=== PATIENT | male | born 1945 | race Caucasian/White ===

== ENCOUNTER 2016-08-06 13:35 | Inpatient (IN) ==
[2016-08-06] MEDS ORDERED: *HR* HYDROmorphone (PF) 1 MG/ML SYRINGE IVP ONE (14:04)
[2016-08-06] MEDS ORDERED: Ondansetron 4 MG/2 ML VIAL IVP ONE (14:04)
--- NOTE | 2016-08-06 14:07 | Emergency Department Note ---
Disposition Clinical Impression: Splenomegaly Disposition: Admitted As Inpatient Condition: Fair Referrals: Julio César Lemus DO [Primary Care Provider] - Forms: Work/School Release, ED Satisfaction Letter Time of Disposition: 16:51 Abdominal Pain HPI - General Chief Complaint: ED Abdominal Pain Stated Complaint: Sharp Abdominal Pain Time Seen by Provider: 08/06/16 13:46 Source: patient, family Mode of arrival: ambulatory Limitations: no limitations Nursing Notes Reviewed: Yes Vital Signs Reviewed: Yes - History of Present Illness HPI Narrative: 71-year-old male comes in with a 6 month history of intermittent left-sided abdominal pain. Patient has a history of AML. He states he's had this pain intermittently for 6 months. Patient has had 2 previous colonoscopies that showed polyps. His next colonoscopy is due to 2019. Denies any blood in the stool or dark tarry stools. He is not receiving treatment for his AML at this time. Patient has been seen by oncology here and at the [facility]. Pt Subjective Complaint: abdominal pain Onset (ago): day(s) Consistency: intermittent Pain Scale: 10 Quality: stabbing Radiation: LLQ Migration to: no migration Improves with: nothing Worsens with: nothing - Related Data Home Medications Medication Instructions Recorded Confirmed Albuterol Sulfate [Ventolin Hfa] 1 puff IH Q4-6H PRN 01/20/16 07/26/16 Ascorbate Calcium [Vitamin C] 500 mg PO DAILY 01/20/16 07/26/16 Cholecalciferol (D-3) [Vitamin D] 1,000 unit PO DAILY 01/20/16 07/26/16 Fluticasone Propionate Nasal 2 spray NS DAILY PRN 01/20/16 07/26/16 [Flonase] Montelukast [Singulair] 10 mg PO DAILY 01/20/16 07/26/16 Nadolol 20 mg PO DAILY 01/20/16 07/26/16 Pantoprazole Sodium [Protonix] 40 mg PO DAILY 01/20/16 07/26/16 Simvastatin [Zocor] 40 mg PO HS 01/20/16 07/26/16 Temazepam [Restoril] 15 mg PO HS 01/20/16 07/26/16 Ondansetron HCl [Zofran] 4 mg PO Q6H PRN 02/19/16 07/26/16 Previous Rx's Medication Instructions Recorded Magic Mouthwash 5 - 10 ml PO TID PRN #480 ml 02/25/16 Valacyclovir [Valtrex] 500 mg PO DAILY #30 tablet 02/25/16 Oxycodone HCl 5 mg PO Q2H PRN #90 capsule 07/19/16 Oxycodone HCl [Oxycodone HCl ER] 15 mg PO Q12H #60 tab.er.12h 07/19/16 Allergies Allergy/AdvReac Type Severity Reaction Status Date / Time aspirin [ASA] Allergy Heartburn Verified 08/06/16 13:37 Zolpidem [From Ambien] AdvReac See Verified 08/06/16 13:37 Comments Constitutional: Denies: fever, chills, weakness, weight change Eyes: Denies: eye pain, eye discharge, vision change ENT ED: Denies: ear pain, throat pain, dental pain, hearing loss, epistaxis, congestion, dysphagia Cardiovascular: Denies: chest pain, palpitations, dyspnea on exertion, edema, syncope Respiratory: Denies: cough, dyspnea, wheezes, hemoptysis, stridor Gastrointestinal: Reports: abdominal pain. Denies: nausea, vomiting, diarrhea, constipation, hematemesis, melena, hematochezia Genitourinary: Denies: urgency, dysuria, frequency, hematuria Musculoskeletal: Denies: back pain, neck pain, arthralgia, myalgia Integumentary: Denies: rash, abrasion, lesions Neurological: Denies: headache, weakness, numbness, paresthesias, confusion, abnormal gait, vertigo Psychiatric: Denies: anxiety, depression, suicidal thoughts, homicidal thoughts , auditory hallucinations, visual hallucinations Endocrine: Denies: fatigue Hematological/Lymphatic: Denies: easy bleeding, easy bruising Allergic/Immunologic: Denies: facial swelling, urticaria Abdominal Pain PMH - Past Medical History Medical history: Reports: cancer, cirrhosis, COPD, GERD, hypertension, other Male Surgical History: Reports: cholecystectomy Psychiatric history: Reports: no psych history - Social History Smoking status: Never smoker Alcohol use: Reports: none Drug use: Reports: none Physical Exam - General Limitations: no limitations General appearance: alert, in no apparent distress - Head Head exam: atraumatic, normocephalic, normal inspection - Eye Eye exam: Present: normal appearance, PERRL, EOMI - ENT ENT exam: normal exam, normal oropharynx, mucous membranes moist - Neck Neck exam: Present: normal inspection, full ROM, trachea midline - Chest Chest inspection: Present: normal inspection, symmetric chest wall rise - Respiratory Respiratory exam: Present: normal lung sounds bilaterally - Cardiovascular Cardiovascular exam: Present: regular rate, normal rhythm, normal heart sounds - Abdominal Exam Abdominal exam: Present: soft, tenderness. Absent: distention, guarding, rebound, rigidity Abdominal tenderness: Present: LUQ, LLQ - Extremities Exam Extremities exam: Present: normal inspection, full ROM. Absent: tenderness, pedal edema - Expanded Lower Extremity Exam Neurovascular/Tendon exam: Absent: motor deficit, sensory deficit, tendon deficit - Back Exam Back exam: Present: normal inspection, full ROM. Absent: tenderness - Neurological Exam Neurological exam: Present: alert, oriented X3 - Psychiatric Psychiatric exam: Present: normal affect, normal mood - Skin Skin exam: Present: warm, dry, intact, normal color Course - Reevaluation(s) Reevaluation #1: 71-year-old with a history of AML who comes in with left upper quadrant pain. CT scan shows a 20 cm spleen, the CT from 2013 showed 11 cm spleen. Discussed case with the oncologist and he wants the patient admitted so they can work this up further. Time: 16:50 - Consultations Consultation #1: Discussed with , admitted to the hospitalist. Time: 16:50 Consultation #2: Discussed with Bindu Cesar nurse practitioner, admit Time: 16:51 Vital Signs Temperature 98.2 F 08/06/16 13:37 Pulse Rate 93 08/06/16 13:37 Respiratory Rate 18 08/06/16 13:37 Blood Pressure 134/75 08/06/16 13:37 O2 Sat by Pulse Oximetry 95 08/06/16 13:37 Temperature 98.2 F 08/06/16 13:37 Pulse Rate 82 08/06/16 16:30 Respiratory Rate 16 08/06/16 16:30 Blood Pressure 103/61 08/06/16 16:30 O2 Sat by Pulse Oximetry 97 08/06/16 16:30 Oxygen Delivery Oxygen Delivery Nasal Cannula Abdominal Pain - Lab Data Lab results reviewed: Yes I reviewed the patient's lab results. Result diagrams: 08/06/16 15:30 08/06/16 15:30 Lab Results 0208/06/16 08/06/16 Range/Units 15:20 15:30 15:30 WBC 10.5 (4.3-11.1) K/mcL RBC 2.59 L (4.19-5.50) M/mcL Hgb 7.5 L (12.9-16.9) g/dL Hct 21.8 L (37.5-50.1) % MCV 84.2 (83.0-100.0) fL MCH 29.0 (28.0-33.3) pg MCHC 34.4 (31.6-35.5) g/dL RDW 14.3 (11.5-14.5) % Plt Count 34 L (140-400) K/mcL MPV 10.3 (9.4-12.4) fL Immature Gran % 2.1 (0-4) % Seg Neutrophils % 60.7 % Lymphocytes % 18.9 % Monocytes % 18.2 % Eosinophils % 0.0 % Basophils % 0.1 % Neutrophils # 6.4 (1.6-8.9) K/mcL Lymphocytes # 2.0 (0.6-4.6) K/mcL Monocytes # 1.9 H (0.0-1.3) K/mcL Eosinophils # 0.0 (0.0-0.6) K/mcL Basophils # 0.0 (0.0-0.2) K/mcL Nucleated RBCs/100 WBC 0.2 H (0) /100 WBC Immature Plt Fraction 7.0 H (1.1-6.1) % PT 17.0 H (9.4-12.1) Seconds INR 1.6 APTT 28.7 (26.0-36.0) Seconds Sodium (136-145) mEq/L Potassium (3.5-4.5) mEq/L Chloride (98-109) mEq/L Carbon Dioxide (19-29) mEq/L BUN (8-26) mg/dL Creatinine (0.72-1.25) mg/dL Est GFR ( Amer) (> 60) Est GFR (Non-Af Amer) (> 60) BUN/Creatinine Ratio (6-26) Glucose (70-99) mg/dL Calculated Osmolality (280-300) Lactic Acid (0.5-2.2) mmol/L Calcium (8.6-10.8) mg/dL Total Bilirubin (0.2-1.2) mg/dL Direct Bilirubin (0.0-0.5) mg/dL Indirect Bilirubin (0.0-1.2) mg/dL AST (5-34) Units/L ALT (0-55) Units/L Alkaline Phosphatase (38-126) Units/L Troponin I (0-0.03) ng/mL Serum Total Protein (6.0-8.3) g/dL Albumin (3.5-5.0) g/dL Globulin (2.4-3.5) g/dL Albumin/Globulin Ratio (1.1-2.2) Amylase (25-125) Units/L Lipase (8-78) Units/L Urine Color Yellow (Yellow) Urine Clarity Slightly Hazy (Clear) Urine pH 6.0 (5.0-8.0) pH Units Ur Specific [place] 1.021 (1.010-1.025) Urine Protein Trace (Neg-Trace) mg/dL Urine Glucose (UA) Normal (Normal) mg/dL Urine Ketones Trace H (Negative) mg/dL Urine Blood Negative (Negative) Urine Nitrite Negative (Negative) Urine Bilirubin Negative (Negative) Urine Urobilinogen Normal (Normal) mg/dL Ur Leukocyte Esterase Small H (Negative) Urine Microscopic RBC 0-3 (0-3) per hpf Urine Microscopic WBC 5-15 H (0-3) per hpf Ur Squamous Epith Cells Many H (None-Few) per lpf Urine Bacteria None Seen (None-Few) per hpf Hyaline Casts Moderate H (None-Few) per lpf Ur Culture Indicated? YES A (NO) 08/06/16 08/06/16 08/06/16 Range/Units 15:30 15:30 15:30 WBC (4.3-11.1) K/mcL RBC (4.19-5.50) M/mcL Hgb (12.9-16.9) g/dL Hct (37.5-50.1) % MCV (83.0-100.0) fL MCH (28.0-33.3) pg MCHC (31.6-35.5) g/dL RDW (11.5-14.5) % Plt Count (140-400) K/mcL MPV (9.4-12.4) fL Immature Gran % (0-4) % Seg Neutrophils % % Lymphocytes % % Monocytes % % Eosinophils % % Basophils % % Neutrophils # (1.6-8.9) K/mcL Lymphocytes # (0.6-4.6) K/mcL Monocytes # (0.0-1.3) K/mcL Eosinophils # (0.0-0.6) K/mcL Basophils # (0.0-0.2) K/mcL Nucleated RBCs/100 WBC (0) /100 WBC Immature Plt Fraction (1.1-6.1) % PT (9.4-12.1) Seconds INR APTT (26.0-36.0) Seconds Sodium 136 (136-145) mEq/L Potassium 4.4 (3.5-4.5) mEq/L Chloride 101 (98-109) mEq/L Carbon Dioxide 25 (19-29) mEq/L BUN 23 (8-26) mg/dL Creatinine 1.54 H (0.72-1.25) mg/dL Est GFR ( Amer) 54 L (> 60) Est GFR (Non-Af Amer) 45 L (> 60) BUN/Creatinine Ratio 15 (6-26) Glucose 109 H (70-99) mg/dL Calculated Osmolality 286 (280-300) Lactic Acid 1.0 (0.5-2.2) mmol/L Calcium 9.4 (8.6-10.8) mg/dL Total Bilirubin 0.6 (0.2-1.2) mg/dL Direct Bilirubin 0.3 (0.0-0.5) mg/dL Indirect Bilirubin 0.3 (0.0-1.2) mg/dL AST 12 (5-34) Units/L ALT 10 (0-55) Units/L Alkaline Phosphatase 76 (38-126) Units/L Troponin I 0.00 (0-0.03) ng/mL Serum Total Protein 7.3 (6.0-8.3) g/dL Albumin 3.4 L (3.5-5.0) g/dL Globulin 3.9 H (2.4-3.5) g/dL Albumin/Globulin Ratio 0.9 L (1.1-2.2) Amylase 48 (25-125) Units/L Lipase 11 (8-78) Units/L Urine Color (Yellow) Urine Clarity (Clear) Urine pH (5.0-8.0) pH Units Ur Specific [place] (1.010-1.025) Urine Protein (Neg-Trace) mg/dL Urine Glucose (UA) (Normal) mg/dL Urine Ketones (Negative) mg/dL Urine Blood (Negative) Urine Nitrite (Negative) Urine Bilirubin (Negative) Urine Urobilinogen (Normal) mg/dL Ur Leukocyte Esterase (Negative) Urine Microscopic RBC (0-3) per hpf Urine Microscopic WBC (0-3) per hpf Ur Squamous Epith Cells (None-Few) per lpf Urine Bacteria (None-Few) per hpf Hyaline Casts (None-Few) per lpf Ur Culture Indicated? (NO) - Radiology Data Radiology results reviewed: Yes I reviewed the patient's radiology results. Abdomen/Pelvis CT 08/06/16 14:02 IMPRESSION: 1. No acute process demonstrated 2. Splenomegaly, with chronic occlusion of the splenic vein 3. No abdominopelvic adenopathy D/ / Bright Salas MD / Bright Salas MD Interpreting Provider: Bright Salas MD - EKG Data EKG attestation: Yes I reviewed and interpreted this EKG. EKG shows normal: sinus rhythm Rate: normal Rhythm: NSR Interpretation: no acute changes
[2016-08-06] MEDS: 0.9 % Sodium Chloride 1,000 ML IVC SCH ×2 (15:29→22:09)
[2016-08-06 15:30] LABS: Bilirubin,Urine Negative (Negative); Blood,Urine Negative (Negative); Color,Urine Yellow (Yellow); Glucose,Urine (UA) Normal (Normal); Ketones,Urine Trace mg/dL (Negative); Leukocyte Esterase,Urine Small (Negative); Nitrite,Urine Negative (Negative); Protein,Urine Trace mg/dL (Neg-Trace); Specific Gravity,Urine 1.021 (1.010-1.025); Urobilinogen,Urine Normal (Normal)
[2016-08-06 15:32] LABS: Bacteria,Urine None Seen per hpf (None-Few); Hyaline Casts,Urine Moderate per lpf (None-Few); RBC,Urine 0-3 per hpf (0-3); Squamous Epithelial Cell,Urine Many per lpf (None-Few)
[2016-08-06 15:35] LABS: Clarity,Urine Slightly Hazy (Clear)
[2016-08-06 15:37] LABS: Basophils % 0.1 %; Hematocrit 21.8 % (37.5-50.1); Hemoglobin 7.5 g/dL (12.9-16.9); Immature Granulocytes % 2.1 % (0-4); Lymphocytes % 18.9 %; Mean Corpuscular HGB Conc 34.4 g/dL (31.6-35.5); Mean Corpuscular Volume 84.2 fL (83.0-100.0); Mean Platelet Volume 10.3 fL (9.4-12.4); Monocytes # 1.9 K/mcL (0.0-1.3); Monocytes % 18.2 %; Neutrophils # 6.4 K/mcL (1.6-8.9); Nucleated Red Blood Cells 0.2 /100 WBC (0); Red Blood Count 2.59 M/mcL (4.19-5.50); Red Cell Distribution Width 14.3 % (11.5-14.5); Segmented Neutrophils % 60.7 %
[2016-08-06 15:38] LABS: Platelet Count 34 K/mcL (140-400)
[2016-08-06 15:42] LABS: INR 1.6
[2016-08-06 15:44] LABS: Activated Partial Thrombo Time 28.7 Seconds (26.0-36.0)
[2016-08-06 15:52] LABS: Albumin 3.4 g/dL (3.5-5.0); Albumin/Globulin Ratio 0.9 (1.1-2.2); Bilirubin,Direct 0.3 mg/dL (0.0-0.5); Bilirubin,Indirect 0.3 mg/dL (0.0-1.2); Bilirubin,Total 0.6 mg/dL (0.2-1.2); Calcium 9.4 mg/dL (8.6-10.8); Globulin 3.9 g/dL (2.4-3.5); Potassium 4.4 mEq/L (3.5-4.5); Total Protein 7.3 g/dL (6.0-8.3)
[2016-08-06] MEDS ORDERED: Naloxone 0.4 MG/ML INJ IVP PRN (20:10)
[2016-08-06] MEDS ORDERED: Ondansetron 4 MG/2 ML VIAL IVP PRN (20:10)
--- NOTE | 2016-08-06 20:37 | Internal Med History&Physical ---
<Bindu Cesar M - Last Filed: 08/06/16 21:53> Date of Encounter: 08/06/16 Time of Encounter: 20:33 Assessment and Plan (1) Splenomegaly Current visit: Yes Status: Acute Patient presented with LUQ pain. 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 Spleen measured 20cm compared to 11cm on imaging from 2014. This could be related to his AML, and/or could be cause of recent anemia. There is a small risk of splenic rupture. Consult to oncology, Dr. Munroe was called by ED. consider surgical consult if Splenectomy is deemed necessary. (2) Anemia Current visit: Yes Status: Acute Patient with Anemia requiring multiple transfusions over the last several months. May be related to AML, though he was thought to acheive remission after 5 rounds of chemo. May be due to the Decitabine chemotherapy itself. May also be due to the Splenomegaly with chronic occlusion of the splenic vein. Patient denies any hematemesis, melena or hematochezia. HGB 7.5, down from previous of 8.7 on 08/01. Type and cross. Hold 2 units for possible transfusion Recheck CBC in the morning. Qualifiers: Anemia type: bone marrow failure Bone marrow failure anemia type: unspecified bone marrow failure Qualified Code(s): D61.9 - Aplastic anemia, unspecified (3) Acute kidney injury superimposed on chronic kidney disease Current visit: Yes Status: Acute Cr 1.54 up from previous of 1.22. UA shows moderate casts,trace ketones, small leuks, and some WBCs. Patient reports poor oral intake over the last several days and suspect he is dehydrated. Will hydrate and recheck chemistry in the morning. 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 Jewell Macario at the [facility] where he completed 5 cycles of decitabine, concluding July 06, 2016, and achieved complete resolution of his cytopenias and transfusion dependence. However this had progressive cytopenias since completion of treatment requiring additional transfusions. Peripheral blood flow cytometry on July 19 did not show any discrete population of myeloid blast cells. Consult to Oncology. Qualifiers: Leukemia Active/Remission status: in remission Qualified Code(s): C92.01 - Acute myeloblastic leukemia, in remission (5) COPD (chronic obstructive pulmonary disease) Current visit: No Status: Acute Patient not reporting any increased cough or shortness of breath. Continue home dose of Singulair and PRN Albuterol. Qualifiers: COPD type: unspecified COPD Qualified Code(s): J44.9 - Chronic obstructive pulmonary disease, unspecified (6) DVT prophylaxis Current visit: No Status: Acute Ambulate with assistance anti-embolic stockings Platelet count is 34, pharmacologic prophylaxis is contraindicated. Internal Medicine - H&P: HPI Chief complaint: LUQ abdominal pain Admitted From: Emergency Dept Plans for Post Hospital Care: Home History of present illness: Mr. Canela is a 71 year old male with COPD, hypertension, chronic kidney disease, cirrhosis, and acute myeloid leukemia status post chemotherapy who presented to the emergency department today with complaints of left upper quadrant pain. He reports he has had this pain on and off for the last several months and it started again 3 days ago and would not go away which is why he presented to the emergency department. He reports he had been constipated and thought the pain was related to that, however his constipation was relieved and pain persisted. He describes the pain as sharp, constant and it is exacerbated when he takes a deep breath. He takes narcotic pain medicine at home and reports it was unable to relieve the pain. He reports that Dilaudid given in the emergency department did help relieve the pain. Patient also reports poor appetite, night sweats and fever with MAXIMUM TEMPERATURE of 99.8 earlier today. He reports he's lost 6 pounds in the last week He denies any vomiting, nausea, diarrhea. Denies any chest pain, palpitations, lightheadedness, dizziness. Evaluation in the emergency department was significant for a CT of the abdomen and pelvis which showed splenomegaly with chronic occlusion of splenic vein, spleen measured 20 cm which is an increase from 11 cm on imaging done in 2014. Labs showed anemia with hemoglobin of 7.5. Patient has chronic anemia related to his AML and chemotherapy, and receives blood transfusions periodically. White blood cell count was normal at 10.5. Creatinine was elevated to 1.54, patient does report chronic kidney disease, however this is above his baseline. He is afebrile, vital signs are stable. On exam, patient is alert and oriented, in no acute distress. Heart has regular rate and rhythm, lungs are clear bilaterally auscultation. Left upper quadrant is tender to palpation. 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 Jewell Macario at the [facility] where he completed 5 cycles of decitabine, concluding July 06, 2016, and achieved complete resolution of his cytopenias and transfusion dependence. However this had progressive cytopenias since completion of treatment requiring additional transfusions. Peripheral blood flow cytometry on July 19 did not show any discrete population of myeloid blast cells. Past Med Surg Social Fam HX - Past Medical History Medical history: cancer (AML), cirrhosis, COPD, GERD, hypertension, other Psychiatric history: no psych history - Past Surgical History Surgical History: cholecystectomy, herniorrhaphy - Social History Smoking Status: Former smoker Smokeless Tobacco Status: No Alcohol use: none Drug use: none - Family History Mother Hx Family Cardiac Disorders: Yes (heart disease) Father Living Status: Cause of : colon cancer Sister Living Status: Hx Family Cardiac Disorders: Yes Internal Medicine - H&P: Meds Albuterol Sulfate [Ventolin Hfa] 1 puff IH Q4-6H PRN 01/20/16 [History] Ascorbate Calcium [Vitamin C] 500 mg PO DAILY 01/20/16 [History] Cholecalciferol (D-3) [Vitamin D] 1,000 unit PO DAILY 01/20/16 [History] Fluticasone Propionate Nasal [Flonase] 2 spray NS DAILY PRN 01/20/16 [History] Montelukast [Singulair] 10 mg PO DAILY 01/20/16 [History] Nadolol 20 mg PO DAILY 01/20/16 [History] Pantoprazole Sodium [Protonix] 40 mg PO DAILY 01/20/16 [History] Simvastatin [Zocor] 40 mg PO HS 01/20/16 [History] Temazepam [Restoril] 15 mg PO HS 01/20/16 [History] Ondansetron HCl [Zofran] 4 mg PO Q6H PRN 02/19/16 [History] Magic Mouthwash 5 - 10 ml PO TID PRN #480 ml 02/25/16 [Rx] Valacyclovir [Valtrex] 500 mg PO DAILY #30 tablet 02/25/16 [Rx] Oxycodone HCl 5 mg PO Q2H PRN #90 capsule 07/19/16 [Rx] Oxycodone HCl [Oxycodone HCl ER] 15 mg PO Q12H #60 tab.er.12h 07/19/16 [Rx] Allergies aspirin [ASA] Allergy (Verified 08/06/16 13:37) Heartburn Zolpidem [From Ambien] Adverse Reaction (Verified 08/06/16 13:37) See Comments does not work All Systems PM: A 10-system review of systems was performed and is negative for pertinent findings except as documented above in the HPI. - Constitutional Constitutional: chills, fatigue, fever(s), night sweats, weakness - EENT Eyes: no change in vision, no discharge, no pain, no photophobia Ears: no ear discharge, no ear pain, no tinnitus Nose, mouth and throat: no dysphagia, no nasal discharge, no neck pain, no sore throat - Cardiovascular Cardiovascular ROS IM: no chest pain, no diaphoresis, no dyspnea, no lightheadedness, no palpitations, no syncope - Respiratory Respiratory: no cough, no dyspnea, no wheezing, no excessive phlegm production - Gastrointestinal Gastrointestinal: abdominal pain, constipation, no diarrhea, no hematemesis, no hematochezia, no melena, no nausea, no vomiting - Musculoskeletal Musculoskeletal ROS IM: no numbness, no tingling - Integumentary Integumentary IM: no rash, no unusual bruising - Neurological Neurological ROS: no confusion, no convulsions, no focal weakness, no numbness, no tingling, no tremor(s) - Hematologic/Lymphatic Hematologic/Lymphatic: no easy bruising - Constitutional Vitals: Temp Pulse Resp BP Pulse Ox 98.2 F 77 18 116/51 96 08/06/16 13:37 08/06/16 18:00 08/06/16 18:43 08/06/16 18:43 08/06/16 18:00 General appearance: Present: A&O X 3, pleasant, no acute distress - Head Head exam: Present: atraumatic, normocephalic - Eye Eye exam: Present: PERRL, conjuntiva pink, sclera anicteric Pupils: Present: PERRL - Neck Neck exam general surgery: Present: supple, trachea midline. Absent: lymphadenopathy - Respiratory Respiratory exam: Present: CTAB. Absent: accessory muscle use, rales, rhonchi, wheezes - Cardiovascular Cardiovascular exam: Present: RRR, +S1, +S2. Absent: diastolic murmur, gallop, rubs, systolic murmur - GI/Abdominal GI/Abdominal exam: Present: normal bowel sounds, soft, tenderness (LUQ), no peritoneal signs. Absent: distended - Extremities Exam Extremities exam: Present: warm, radial pulses palpable and symetrical. Absent : calf tenderness, cyanotic, pedal edema - Neurological Exam Neurological exam: Present: CN II-XII intact, oriented X3, no focal deficits. Absent: facial droop, speech deficit - Skin Skin exam: Present: dry, intact Internal Med - H&P Results - Labs CBC & Chem 7: 08/06/16 15:30 08/06/16 15:30 Labs: All Lab Results (24 Hours) 08/06/16 08/06/16 08/06/16 Range/Units 15:20 15:30 15:30 WBC 10.5 (4.3-11.1) K/mcL RBC 2.59 L (4.19-5.50) M/mcL Hgb 7.5 L (12.9-16.9) g/dL Hct 21.8 L (37.5-50.1) % MCV 84.2 (83.0-100.0) fL MCH 29.0 (28.0-33.3) pg MCHC 34.4 (31.6-35.5) g/dL RDW 14.3 (11.5-14.5) % Plt Count 34 L (140-400) K/mcL MPV 10.3 (9.4-12.4) fL Immature Gran % 2.1 (0-4) % Seg Neutrophils % 60.7 % Lymphocytes % 18.9 % Monocytes % 18.2 % Eosinophils % 0.0 % Basophils % 0.1 % Neutrophils # 6.4 (1.6-8.9) K/mcL Lymphocytes # 2.0 (0.6-4.6) K/mcL Monocytes # 1.9 H (0.0-1.3) K/mcL Eosinophils # 0.0 (0.0-0.6) K/mcL Basophils # 0.0 (0.0-0.2) K/mcL Nucleated RBCs/100 WBC 0.2 H (0) /100 WBC Immature Plt Fraction 7.0 H (1.1-6.1) % PT 17.0 H (9.4-12.1) Seconds INR 1.6 APTT 28.7 (26.0-36.0) Seconds Sodium (136-145) mEq/L Potassium (3.5-4.5) mEq/L Chloride (98-109) mEq/L Carbon Dioxide (19-29) mEq/L BUN (8-26) mg/dL Creatinine (0.72-1.25) mg/dL Est GFR ( Amer) (> 60) Est GFR (Non-Af Amer) (> 60) BUN/Creatinine Ratio (6-26) Glucose (70-99) mg/dL Calculated Osmolality (280-300) Lactic Acid (0.5-2.2) mmol/L Calcium (8.6-10.8) mg/dL Total Bilirubin (0.2-1.2) mg/dL Direct Bilirubin (0.0-0.5) mg/dL Indirect Bilirubin (0.0-1.2) mg/dL AST (5-34) Units/L ALT (0-55) Units/L Alkaline Phosphatase (38-126) Units/L Troponin I (0-0.03) ng/mL Serum Total Protein (6.0-8.3) g/dL Albumin (3.5-5.0) g/dL Globulin (2.4-3.5) g/dL Albumin/Globulin Ratio (1.1-2.2) Amylase (25-125) Units/L Lipase (8-78) Units/L Urine Color Yellow (Yellow) Urine Clarity Slightly Hazy (Clear) Urine pH 6.0 (5.0-8.0) pH Units Ur Specific [place] 1.021 (1.010-1.025) Urine Protein Trace (Neg-Trace) mg/dL Urine Glucose (UA) Normal (Normal) mg/dL Urine Ketones Trace H (Negative) mg/dL Urine Blood Negative (Negative) Urine Nitrite Negative (Negative) Urine Bilirubin Negative (Negative) Urine Urobilinogen Normal (Normal) mg/dL Ur Leukocyte Esterase Small H (Negative) Urine Microscopic RBC 0-3 (0-3) per hpf Urine Microscopic WBC 5-15 H (0-3) per hpf Ur Squamous Epith Cells Many H (None-Few) per lpf Urine Bacteria None Seen (None-Few) per hpf Hyaline Casts Moderate H (None-Few) per lpf Ur Culture Indicated? YES A (NO) 08/06/16 08/06/16 08/06/16 Range/Units 15:30 15:30 15:30 WBC (4.3-11.1) K/mcL RBC (4.19-5.50) M/mcL Hgb (12.9-16.9) g/dL Hct (37.5-50.1) % MCV (83.0-100.0) fL MCH (28.0-33.3) pg MCHC (31.6-35.5) g/dL RDW (11.5-14.5) % Plt Count (140-400) K/mcL MPV (9.4-12.4) fL Immature Gran % (0-4) % Seg Neutrophils % % Lymphocytes % % Monocytes % % Eosinophils % % Basophils % % Neutrophils # (1.6-8.9) K/mcL Lymphocytes # (0.6-4.6) K/mcL Monocytes # (0.0-1.3) K/mcL Eosinophils # (0.0-0.6) K/mcL Basophils # (0.0-0.2) K/mcL Nucleated RBCs/100 WBC (0) /100 WBC Immature Plt Fraction (1.1-6.1) % PT (9.4-12.1) Seconds INR APTT (26.0-36.0) Seconds Sodium 136 (136-145) mEq/L Potassium 4.4 (3.5-4.5) mEq/L Chloride 101 (98-109) mEq/L Carbon Dioxide 25 (19-29) mEq/L BUN 23 (8-26) mg/dL Creatinine 1.54 H (0.72-1.25) mg/dL Est GFR ( Amer) 54 L (> 60) Est GFR (Non-Af Amer) 45 L (> 60) BUN/Creatinine Ratio 15 (6-26) Glucose 109 H (70-99) mg/dL Calculated Osmolality 286 (280-300) Lactic Acid 1.0 (0.5-2.2) mmol/L Calcium 9.4 (8.6-10.8) mg/dL Total Bilirubin 0.6 (0.2-1.2) mg/dL Direct Bilirubin 0.3 (0.0-0.5) mg/dL Indirect Bilirubin 0.3 (0.0-1.2) mg/dL AST 12 (5-34) Units/L ALT 10 (0-55) Units/L Alkaline Phosphatase 76 (38-126) Units/L Troponin I 0.00 (0-0.03) ng/mL Serum Total Protein 7.3 (6.0-8.3) g/dL Albumin 3.4 L (3.5-5.0) g/dL Globulin 3.9 H (2.4-3.5) g/dL Albumin/Globulin Ratio 0.9 L (1.1-2.2) Amylase 48 (25-125) Units/L Lipase 11 (8-78) Units/L Urine Color (Yellow) Urine Clarity (Clear) Urine pH (5.0-8.0) pH Units Ur Specific [place] (1.010-1.025) Urine Protein (Neg-Trace) mg/dL Urine Glucose (UA) (Normal) mg/dL Urine Ketones (Negative) mg/dL Urine Blood (Negative) Urine Nitrite (Negative) Urine Bilirubin (Negative) Urine Urobilinogen (Normal) mg/dL Ur Leukocyte Esterase (Negative) Urine Microscopic RBC (0-3) per hpf Urine Microscopic WBC (0-3) per hpf Ur Squamous Epith Cells (None-Few) per lpf Urine Bacteria (None-Few) per hpf Hyaline Casts (None-Few) per lpf Ur Culture Indicated? (NO) <Jamal Mota - Last Filed: 08/06/16 22:51> Date of Encounter: 08/06/16 - Constitutional Constitutional: no fever(s) (Tmax 99.8; no true reported fevers) - EENT Nose, mouth and throat: no nasal congestion, no post-nasal drip, no sinus pain, no sinus pressure - Respiratory Respiratory: no cough, no dyspnea, no chest congestion - Genitourinary Genitourinary ROS male: no dysuria, no hematuria - Musculoskeletal Musculoskeletal ROS IM: no arthralgias, no muscle cramps, no muscle weakness, no myalgias - Psychiatric Psychiatric: no anxiety, no depression - Endocrine Endocrine IM: no polydipsia, no polyuria - Allergic/Immunologic Allergic/Immunologic: no wheezing, no GI upset with certain foods - Constitutional Vitals: Temp Pulse Resp BP Pulse Ox 98.6 F 86 18 115/71 94 L 08/06/16 21:23 08/06/16 21:23 08/06/16 21:23 08/06/16 21:23 08/06/16 21:23 General appearance: Present: cooperative, pleasant, answers questions appropriately - Head Head exam: Present: normal inspection - Eye Eye exam: Present: PERRL. Absent: conjunctival injection, scleral icterus Pupils: Present: normal accommodation - ENT ENT exam: Present: mucous membranes dry, normal exam Additional comments: no nasal congestion or PND - Respiratory Respiratory exam: Present: CTAB. Absent: rales, rhonchi, wheezes - Cardiovascular Cardiovascular exam: Present: RRR, +S1, +S2. Absent: systolic murmur - GI/Abdominal GI/Abdominal exam: Present: soft, tenderness. Absent: guarding, rebound - Back Exam Back exam: Present: normal inspection. Absent: CVA tenderness (L), CVA tenderness (R) - Psychiatric Psychiatric exam: Present: normal affect, normal mood - Skin Skin exam: Absent: rash Internal Med - H&P Results - Labs CBC & Chem 7: 08/06/16 15:30 08/06/16 15:30 - Attending Attestation I discussed the patient [place], PM, lab data, and exam findings with Bindu Cesar CNP. I then saw and evaluated patient independently as well. Patient confirms the history provided to me by Bindu with the exception that the chemotherapy was stopped due to lack of efficacy rather than achieving remission. He has been PRBC transfusion dependent recently, and he very well may need PBC transfusion this hospital stay. His major concern and issue is the LUQ pain due to his splenomegaly. He denies any abdominal trauma or injury. It is most likely related to his AML, and I will defer to Dr. Campo as to treatment options. He does not have a surgical abdomen on exam presently. His abdomen is soft and non-tender except on deep palpation of his spleen and with coughing (diaphragmatic irritation). He denies any fevers. He has some vague viral and/or oncologic type symptoms. His Port/catheter site looks clean, dry, and without redness. I do not feel he warrants antibiotics right now, but if he spikes a fever, I would have a low threshold to check blood cultures and start empiric antibiotics. Given that it is flu season and that he's had some viral symptoms, I would check a Flu PCR and treat if positive. Other than my comments noted above and my exam findings, I agree with Bindu's assessment and plan.
[2016-08-06] MEDS ORDERED: Fluticasone Propionate Nasal 50 MCG/SPRAY BOTTLE NS PRN (21:19)
[2016-08-06] MEDS ORDERED: Magic Mouthwash 10 ML UD Cup PO PRN (21:19)
[2016-08-06] MEDS ORDERED: NON-FORMULARY MEDICATION 1 EACH EACH (Oxycodone Hcl [Oxycodone Hcl Er] 15 MG) PO SCH (21:30)
[2016-08-06] MEDS: Temazepam 15 MG CAPSULE PO SCH (22:09)
[2016-08-06] MEDS: *HR* HYDROmorphone (PF) 1 MG/ML SYRINGE IVP PRN (22:34)
[2016-08-07] MEDS: *HR* OxyCODONE ER (12 HR) 10 MG TABLET PO SCH ×4 (01:30→23:15)
[2016-08-07] MEDS: *HR* HYDROmorphone (PF) 1 MG/ML SYRINGE IVP PRN ×5 (03:50→21:02)
[2016-08-07 04:18] LABS: Basophils % 0.1 %; Eosinophils % 0.1 %; Hematocrit 20.4 % (37.5-50.1); Hemoglobin 6.8 g/dL (12.9-16.9); Immature Granulocytes % 1.9 % (0-4); Immature Platelets 6.5 % (1.1-6.1); Lymphocytes # 1.8 K/mcL (0.6-4.6); Lymphocytes % 22.7 %; Mean Corpuscular HGB Conc 33.3 g/dL (31.6-35.5); Mean Corpuscular Hemoglobin 28.2 pg (28.0-33.3); Mean Corpuscular Volume 84.6 fL (83.0-100.0); Mean Platelet Volume 9.8 fL (9.4-12.4); Monocytes # 1.4 K/mcL (0.0-1.3); Monocytes % 18.5 %; Neutrophils # 4.4 K/mcL (1.6-8.9); Nucleated Red Blood Cells 0.3 /100 WBC (0); Red Blood Count 2.41 M/mcL (4.19-5.50); Red Cell Distribution Width 14.3 % (11.5-14.5); Segmented Neutrophils % 56.7 %
[2016-08-07 04:26] LABS: BUN/Creatinine Ratio 16 (6-26); Blood Urea Nitrogen 20 mg/dL (8-26); Calcium 8.8 mg/dL (8.6-10.8); Carbon Dioxide 23 mEq/L (19-29); Chloride 106 mEq/L (98-109); Glucose 111 mg/dL (70-99); Osmolality,Calculated 289 (280-300); Potassium 3.9 mEq/L (3.5-4.5); Sodium 138 mEq/L (136-145); eGFR For African Americans > 60 (> 60); eGFR For Non-African Americans 57 (> 60)
[2016-08-07 04:34] LABS: Platelet Count 30 K/mcL (140-400)
[2016-08-07 04:36] LABS: Platelet Estimate Marked Decrease (Normal)
[2016-08-07 04:39] LABS: Anisocytosis 1+ (Not Present)
[2016-08-07] MEDS: 0.9 % Sodium Chloride 1,000 ML IVC SCH ×3 (05:10→23:17)
[2016-08-07] MEDS: valACYclovir 500 MG TABLET PO SCH (07:56)
[2016-08-07] MEDS ORDERED: 0.9 % Sodium Chloride 250 ML ONE (10:48)
[2016-08-07 16:35] LABS: Hemoglobin 7.8 g/dL (12.9-16.9)
[2016-08-07 16:36] LABS: Immature Platelets 6.1 % (1.1-6.1); Mean Corpuscular HGB Conc 33.9 g/dL (31.6-35.5); Mean Corpuscular Hemoglobin 28.8 pg (28.0-33.3); Mean Corpuscular Volume 84.9 fL (83.0-100.0); Mean Platelet Volume 11.1 fL (9.4-12.4); Nucleated Red Blood Cells 0.3 /100 WBC (0); Red Blood Count 2.71 M/mcL (4.19-5.50)
--- NOTE | 2016-08-07 16:42 | Internal Med Progress Note ---
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 Jewell Macario at the [facility] where he completed 5 cycles of decitabine, concluding July 06, 2016, and achieved complete resolution of his cytopenias and transfusion dependence. However this had progressive cytopenias since completion of treatment requiring additional transfusions. Peripheral blood flow cytometry on July 19 did not show any discrete population of myeloid blast cells. awaiting oncology recommendaions Qualifiers: Leukemia Active/Remission status: in remission Qualified Code(s): C92.01 - Acute myeloblastic leukemia, in remission (2) Splenomegaly Current Visit: Yes Status: Acute Assessment and plan: possible 2/2 AML> chronic splenic vein occludion and he also says that he has cirrhosis of the liver. We will consult oncology for further management. (3) COPD (chronic obstructive pulmonary disease) Current Visit: No Status: Acute Assessment and plan: Stable continue home medications. Qualifiers: COPD type: unspecified COPD Qualified Code(s): J44.9 - Chronic obstructive pulmonary disease, unspecified (4) Pancytopenia Current Visit: No Status: Acute Assessment and plan: Patient with Anemia requiring multiple transfusions over the last several months. May be related to AML, though he was thought to acheive remission after 5 rounds of chemo. May be due to the Decitabine chemotherapy itself. May also be due to the Splenomegaly with chronic occlusion of the splenic vein. Patient denies any hematemesis, melena or hematochezia. HGB 6.8, will transfuse 1 unit now. Hold 2 units for possible transfusion Recheck CBC in the morning. - Time Spent With Patient 25 - 35 minutes - Subjective Interval history: seen at the bedside, h/o AML under remission , however has chronic anemia and trasnfusion dependent presented with abdominal pain. reports that he feels better, CT abd shows splenoegaly and chronic vein occlusion. - Constitutional Vitals: Temp Pulse Resp BP Pulse Ox 98.6 F 96 16 128/82 94 L 08/07/16 15:14 08/07/16 15:14 08/07/16 15:14 08/07/16 15:14 08/07/16 15:14 General appearance: Present: cooperative, pleasant, answers questions appropriately Exam: - Head Head exam: Present: atraumatic, normocephalic - Eye Eye exam: Present: PERRL, conjuntiva pink, sclera anicteric Pupils: Present: PERRL - Neck Neck exam general surgery: Present: supple, trachea midline. Absent: lymphadenopathy - Respiratory Respiratory exam: Present: CTAB. Absent: accessory muscle use, rales, rhonchi, wheezes - Cardiovascular Cardiovascular exam: Present: RRR, +S1, +S2. Absent: diastolic murmur, gallop, rubs, systolic murmur - GI/Abdominal GI/Abdominal exam: Present: normal bowel sounds, soft, tenderness (LUQ), no peritoneal signs. Absent: distended - Extremities Exam Extremities exam: Present: warm, radial pulses palpable and symetrical. Absent : calf tenderness, cyanotic, pedal edema - Neurological Exam Neurological exam: Present: CN II-XII intact, oriented X3, no focal deficits. Absent: facial droop, speech deficit - Skin Skin exam: Present: dry, intact Internal Medicine: Result - Labs CBC & Chem 7: 08/07/16 04:00 08/07/16 04:00 Labs: Short CBC 08/07/16 Range/Units 04:00 WBC 7.7 (4.3-11.1) K/mcL Hgb 6.8 L (12.9-16.9) g/dL Hct 20.4 L (37.5-50.1) % Plt Count 30 L* (140-400) K/mcL Neutrophils # 4.4 (1.6-8.9) K/mcL BMP 08/07/16 04:00 Sodium 138 Potassium 3.9 Chloride 106 Carbon Dioxide 23 BUN 20 Creatinine 1.25 Glucose 111 H Calcium 8.8 - ABG Interpretation ABG results: PT/INR, D-dimer PT 17.0 Seconds (9.4-12.1) H 08/06/16 15:30 Consult Discharge Plan - Plan Referrals: Julio César Lemus DO [Primary Care Provider] -
[2016-08-07 16:50] LABS: Platelet Count 26 K/mcL (140-400)
[2016-08-07 17:51] LABS: 2009 H1N1 PCR NOT DETECTED (Not Detect); Influenza A PCR Negative (Negative); Influenza B PCR Negative (Negative)
[2016-08-07] MEDS: *HR* OxyCODONE Immed Rel 5 MG TABLET PO PRN (18:55)
--- NOTE | 2016-08-07 20:49 | Oncology Inp Consult Note ---
Date of Encounter: 08/07/16 Time of Encounter: 20:48 - Data of Consult Patient: known to practice within the last 3 years Consult date: 08/07/16 Requesting Physician: Dakota Crockett Primary Care Provider: Jake Alexandra - Consult Narrative Reason for consult: Splenomegaly, AML, pancytopenia History of present illness: Mr. Canela is a 71 year old male patient of the cancer who has established oncologic care for AML. He is also followed by Dr Parris Macario at [facility] who is primarily administering his antineoplastic therapy while we co-ordinate his supportive management locally. He was last seen in the office 07/26/16 and I have summarized patient's heme/onc background below based on my most recent office report: Very pleasant 70-year-old male patient of Dr Lemus followed by adjuvant myelogenous leukemia. He was previously treated by Dr. Baez and I assumed the patient's care after he left the health system. He is currently receiving leukemia treatment under care of Dr. Macario at [facility]. He initially presented with progressive weight loss associated with cough, night sweats 2-3 months and CBC for evaluation showed an 01/20/16 for evaluation of his symptoms showed pancytopenia with hemoglobin 8.2, white WBC count 2.8, platelet count 80,000. Workup for his pancytopenia did not reveal any malignancy such as hematinic deficiencies to explain his presentation and he went on to have a bone marrow biopsy on 01/22/16 which confirmed acute myelogenous leukemia and he was referred to [facility] for further evaluation/management. He has since established with Dr. Jewell Macario at [facility] and has been on treatment with hypomethylating agent decitabine since 02/08/16. He completed 5 cycles of treatment on 07/06/[address] Macario sending follow- up. I had the opportunity to review her most recent office report on [facility] Doc-link for details of ongoing management and oncologic care today. 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 Bone marrow flow cytometry dated 1215 showed increased myeloid blast (12%) positive for CD45, CD13, CD33, CD117, CD4, CD 7, CD34. Bone marrow pathology morphologically compatible with AML with a complex karyotype by cytogenetics and FISH panel. Bone marrow aspirate showed 24% blasts with our records. He evidently had a complete response after cycle 1 of treatment (induction decitabine) with complete resolution of his cytopenias and transfusion independence. More recently at his last office visit with Dr. Macario, there was concern about progressive cytopenias although peripheral smear review did not reveal any evidence of circulating blasts. She recommended continued monitoring and to proceed with cycle 6 of treatment if cytopenias improved. He has a follow-up appointment 08/03/16. He has also discussed the role of transplantation in AML management with Dr. Valdez at [facility] and is not considered an appropriate candidate due to his advanced age and comorbidities especially long-standing history of cirrhosis. Per records, his other lingering problems include: Prolonged neutropenia with increased risk for infection. He is on Valtrex and fluconazole for infectious prophylaxis. He had an abnormal chest CT 03/15/16 which showed consolidative masslike and nodular/lung mass opacities in the bilateral lungs. Follow-up chest CT in 05/11/16 and revealed moderate improvement and plan was for repeat CT 08/09/16. He is being followed locally for transfusions as needed. Most recently, he received 2 units of PRBC on 07/25/16 for hemoglobin of 7. He also has twice weekly lab studies ordered by [facility]. His peripheral blood flow cytometry 07/19/16 did not show any discrete population of myeloid blasts cells. CD34 positive cells population accounted for 2% of ungated events. He has a long-standing history of left hip pain attributed to DJD. He reports recent flareup of his pain symptoms. Pain has been controlled with opioids and is about out of his usual medications. Right femur x-ray 07/19/16 was negative for acute abnormality. He was last seen at [facility] 08/03/16 for scheduled follow-up I reviewed Dr. Macario' s report on [facility] doc-link. He is scheduled for repeat chest CT scan in [place] on 08/01/16 to evaluate consolidative/metastatic opacity in bilateral lungs that was noted back in March 2016. They have also sent a repeat peripheral blood flow cytometry and plan is for bone marrow biopsy in the near future depending on peripheral blood flow findings. Patient is currently hospitalized for unexplained, painful splenomegaly after presenting with left upper quadrant abdominal pain. Abdomen CT in the emergency room showed 20 cm splenomegaly associated with splenic vein occlusive thrombosis which is new compared to his previous imaging including most imaging from October 2015. Last abdomen CT scan record was from 2013 which was negative for splenomegaly. There are prominent intra-abdominal collateral vessels suggesting chronicity of his splenic vein thrombus. Patient reportedly has a diagnosis of cirrhosis of the liver seems to have a normal appearance on his most recent scan. Patient is currently hospitalized for his acute abdominal pain which is likely due to splenic vein thromboses of unclear etiology and duration. Dr. Lu in the ER was kind enough to discuss patient's case with me on initial presentation and there was initial concern about contribution from his underlying AML. Since he did not have any other hematologic abnormalities, we agreed that it was reasonable to admit to obtain her for supportive management. Patient seen and examined at bedside. Chart reviewed for details of ongoing care by hospital team which is much appreciated. Since admission, he has received a unit of packed red cells for hemoglobin of 6.8. Thrombocytopenia is also worse since I last saw him in the office with most recent CBC showed a platelet count of 26,000. No associated bleeding symptoms. Abdominal pain improved since admission but he still having episodes of breakthrough pain on current regimen. Oncology is consulted re: new,painful splenomegaly, splenic vein thrombosis in the setting of AML. Rest of past medical, surgical, family, social history detailed below and verified with patient today. Review of systems: 12 point review of systems performed with patient and positive findings noted in history of present illness. All other systems are negative: Physical exam: Vital Signs Temp 99.1 F 08/07/16 19:18 Pulse 96 08/07/16 19:18 Resp 16 08/07/16 19:18 BP 132/77 08/07/16 19:18 Pulse Ox 94 L 08/07/16 19:18 GENERAL: Alert and oriented, comfortable but chronically ill-appearing. Mental Status: Affect appropriate for circumstances HEENT: Sclerae anicteric. No mucositis or thrush. No other oral or pharyngeal lesions or erythema. Skin: No rashes or petechiae. No evidence of skin malignancy Lymph nodes: No cervical, supraclavicular, axillary, or inguinal adenopathy. Lungs: Clear to auscultation bilaterally. Clear to percussion bilaterally. Cardiovascular: Regular rate and rhythm. No gallops, murmurs, or rubs. Abdomen: Soft, nontender; No organomegaly or masses palpable. Extremities: No edema. No calf swelling or tenderness. No joint deformity. Neurologic: Alert, normal gait; no focal weakness or sensory abnormalities. Results: Laboratory Last Values WBC 8.8 K/mcL (4.3-11.1) 08/07/16 16:14 RBC 2.71 M/mcL (4.19-5.50) L 08/07/16 16:14 Hgb 7.8 g/dL (12.9-16.9) L 08/07/16 16:14 Hct 23.0 % (37.5-50.1) L 08/07/16 16:14 MCV 84.9 fL (83.0-100.0) 08/07/16 16:14 MCH 28.8 pg (28.0-33.3) 08/07/16 16:14 MCHC 33.9 g/dL (31.6-35.5) 08/07/16 16:14 RDW 14.0 % (11.5-14.5) 08/07/16 16:14 Plt Count 26 K/mcL (140-400) L* 08/07/16 16:14 MPV 11.1 fL (9.4-12.4) 08/07/16 16:14 Immature Gran % TNP 08/07/16 16:14 Seg Neutrophils % TNP 08/07/16 16:14 Lymphocytes % TNP 08/07/16 16:14 Monocytes % TNP 08/07/16 16:14 Eosinophils % TNP 08/07/16 16:14 Basophils % TNP 08/07/16 16:14 Neutrophils # Test Not Performed 08/07/16 16:14 Lymphocytes # Test Not Performed 08/07/16 16:14 Monocytes # Test Not Performed 08/07/16 16:14 Eosinophils # Test Not Performed 08/07/16 16:14 Basophils # Test Not Performed 08/07/16 16:14 Nucleated RBCs/100 WBC 0.3 /100 WBC (0) H 08/07/16 16:14 Platelet Estimate Marked Decrease (Normal) L 08/07/16 04:00 Immature Plt Fraction 6.1 % (1.1-6.1) 08/07/16 16:14 Anisocytosis 1+ (Not Present) A 08/07/16 04:00 PT 17.0 Seconds (9.4-12.1) H 08/06/16 15:30 INR 1.6 08/06/16 15:30 APTT 28.7 Seconds (26.0-36.0) 08/06/16 15:30 Sodium 138 mEq/L (136-145) 08/07/16 04:00 Potassium 3.9 mEq/L (3.5-4.5) 08/07/16 04:00 Chloride 106 mEq/L (98-109) 08/07/16 04:00 Carbon Dioxide 23 mEq/L (19-29) 08/07/16 04:00 BUN 20 mg/dL (8-26) 08/07/16 04:00 Creatinine 1.25 mg/dL (0.72-1.25) 08/07/16 04:00 Est GFR ( Amer) > 60 (> 60) 08/07/16 04:00 Est GFR (Non-Af Amer) 57 (> 60) L 08/07/16 04:00 BUN/Creatinine Ratio 16 (6-26) 08/07/16 04:00 Glucose 111 mg/dL (70-99) H 08/07/16 04:00 POC Glucose 109 (58-89) H 08/07/16 05:39 Calculated Osmolality 289 (280-300) 08/07/16 04:00 Lactic Acid 1.0 mmol/L (0.5-2.2) 08/06/16 15:30 Calcium 8.8 mg/dL (8.6-10.8) 08/07/16 04:00 Total Bilirubin 0.6 mg/dL (0.2-1.2) 08/06/16 15:30 Direct Bilirubin 0.3 mg/dL (0.0-0.5) 08/06/16 15:30 Indirect Bilirubin 0.3 mg/dL (0.0-1.2) 08/06/16 15:30 AST 12 Units/L (5-34) 08/06/16 15:30 ALT 10 Units/L (0-55) 08/06/16 15:30 Alkaline Phosphatase 76 Units/L (38-126) 08/06/16 15:30 Troponin I 0.00 ng/mL (0-0.03) 08/06/16 15:30 Serum Total Protein 7.3 g/dL (6.0-8.3) 08/06/16 15:30 Albumin 3.4 g/dL (3.5-5.0) L 08/06/16 15:30 Globulin 3.9 g/dL (2.4-3.5) H 08/06/16 15:30 Albumin/Globulin Ratio 0.9 (1.1-2.2) L 08/06/16 15:30 Amylase 48 Units/L (25-125) 08/06/16 15:30 Lipase 11 Units/L (8-78) 08/06/16 15:30 Urine Color Yellow (Yellow) 08/06/16 15:20 Urine Clarity Slightly Hazy (Clear) 08/06/16 15:20 Urine pH 6.0 pH Units (5.0-8.0) 08/06/16 15:20 Ur Specific [place] 1.021 (1.010-1.025) 08/06/16 15:20 Urine Protein Trace mg/dL (Neg-Trace) 08/06/16 15:20 Urine Glucose (UA) Normal mg/dL (Normal) 08/06/16 15:20 Urine Ketones Trace mg/dL (Negative) H 08/06/16 15:20 Urine Blood Negative (Negative) 08/06/16 15:20 Urine Nitrite Negative (Negative) 08/06/16 15:20 Urine Bilirubin Negative (Negative) 08/06/16 15:20 Urine Urobilinogen Normal mg/dL (Normal) 08/06/16 15:20 Ur Leukocyte Esterase Small (Negative) H 08/06/16 15:20 Urine Microscopic RBC 0-3 per hpf (0-3) 08/06/16 15:20 Urine Microscopic WBC 5-15 per hpf (0-3) H 08/06/16 15:20 Ur Squamous Epith Cells Many per lpf (None-Few) H 08/06/16 15:20 Urine Bacteria None Seen per hpf (None-Few) 08/06/16 15:20 Hyaline Casts Moderate per lpf (None-Few) H 08/06/16 15:20 Ur Culture Indicated? YES (NO) A 08/06/16 15:20 Influ A (H1N1/09) PCR NOT DETECTED (Not Detect) 08/07/16 16:14 Influenza Type A (PCR) Negative (Negative) 08/07/16 16:14 Influenza Type B (PCR) Negative (Negative) 08/07/16 16:14 Specimen Rejected Miscellaneous 08/07/16 16:14 Blood Type O POSITIVE 02/26/17 08:45 Antibody Screen NEGATIVE 08/07/16 08:45 Crossmatch See Detail 08/07/16 08:45 Radiographic studies: I personally reviewed and interpreted patient's most recent imaging studies dated 08/06/16. I discussed the findings with the patient today. Abdomen/Pelvis CT 08/06/16 14:02 IMPRESSION: 1. No acute process demonstrated 2. Splenomegaly, with chronic occlusion of the splenic vein 3. No abdominopelvic adenopathy D/ / Bright Salas MD / Bright Salas MD Interpreting Provider: Bright Salas MD Impression/recommendations: Splenomegaly: Likely related to splenic vein thrombosis. Imaging as recently as October 2015 did not show any evidence of splenomegaly. Duration and etiology of his splenic vein thrombus is unclear at this time but his clinical presentation suggests fairly recent onset while collateralization suggests chronicity of his thrombus. Patient does carry a diagnosis of cirrhosis on his chart although his most recent imaging does not show any radiographic evidence of underlying liver cirrhosis. He has fairly well-preserved synthetic liver function despite his underlying diagnosis of AML and previous antineoplastic therapy. I am not sure if his splenomegaly or splenic vein thrombosis extending on the basis of underlying chronic liver disease. Radiographic appearance of pancreatic stranding suggests that he may have underlying pancreatitis. Pancreatic enzymes normal on initial presentation. I agree with ongoing supportive measures as you are doing. Pain is steadily improving with current measures. Chronic splenic vein thrombosis: Given chronicity, benefit of anticoagulation is unclear at this time. 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 Due to collateralization, I do not believe anticoagulation will alter the overall course of his splenic problems. AML: He is currently being evaluated at [facility] for relapse of his AML following previous remission ongoing treatment. He is tentatively scheduled for bone marrow biopsies sometime next week depending on the results of her follow-up blood flow cytometry was done . I am not sure how long it would take for us to get his symptoms stabilized for discharge I would like for him to get his appointment and call us. I will discuss with Dr. Macario making upcoming week regarding possible transfer to [facility] for ongoing management and continuity of his leukemia care. 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 Platelet transfusion to maintain platelet count of 15,000 or greater. If neutropenia becomes an issue, will consider G-CSF support. We'll follow the patient along side you during this hospitalization but please do not hesitate to call regarding interval hematologic questions as they arise. Thank you for your excellent ongoing care for allowing us to see him while in- house. This report was created using voice recognition software and may contain errors. It was signed but not edited to expedite communication. Past Med Surg Social Fam HX - Past Medical History Medical history: cancer (AML), cirrhosis, COPD, GERD, hypertension, other Psychiatric history: no psych history - Past Surgical History Surgical History: cholecystectomy, herniorrhaphy - Social History Smoking Status: Former smoker Smokeless Tobacco Status: No Alcohol use: none Drug use: none - Family History Mother Hx Family Cardiac Disorders: Yes (heart disease) Father Living Status: Cause of : colon cancer Sister Living Status: Hx Family Cardiac Disorders: Yes Medications and Allergies Albuterol Sulfate [Ventolin Hfa] 1 puff IH Q4-6H PRN 01/20/16 [History] Ascorbate Calcium [Vitamin C] 500 mg PO DAILY 01/20/16 [History] Cholecalciferol (D-3) [Vitamin D] 1,000 unit PO DAILY 01/20/16 [History] Fluticasone Propionate Nasal [Flonase] 2 spray NS DAILY PRN 01/20/16 [History] Nadolol 20 mg PO DAILY 01/20/16 [History] Pantoprazole Sodium [Protonix] 40 mg PO DAILY 01/20/16 [History] Simvastatin [Zocor] 40 mg PO HS 01/20/16 [History] Temazepam [Restoril] 15 mg PO HS 01/20/16 [History] Ondansetron HCl [Zofran] 4 mg PO Q6H PRN 02/19/16 [History] Magic Mouthwash 5 - 10 ml PO TID PRN #480 ml 02/25/16 [Rx] Valacyclovir [Valtrex] 500 mg PO DAILY #30 tablet 02/25/16 [Rx] Oxycodone HCl 5 mg PO Q2H PRN #90 capsule 07/19/16 [Rx] Oxycodone HCl [Oxycodone HCl ER] 15 mg PO Q12H #60 tab.er.12h 07/19/16 [Rx] Allergies aspirin [ASA] Adverse Reaction (Verified 08/07/16 10:25) Heartburn Zolpidem [From Ambien] Adverse Reaction (Verified 08/07/16 10:25) See Comments PATIENT STATES IT DID NOT MAKE HIM SLEEPY- Oncology - Exam - Constitutional Vitals: Temp Pulse Resp BP Pulse Ox 99.1 F 96 16 132/77 94 L 08/07/16 19:18 08/07/16 19:18 08/07/16 19:18 08/07/16 19:18 08/07/16 19:18 Oncology - Results - Labs Labs: Short CBC 08/07/16 08/07/16 Range/Units 04:00 16:14 WBC 7.7 8.8 (4.3-11.1) K/mcL Hgb 6.8 L 7.8 L (12.9-16.9) g/dL Hct 20.4 L 23.0 L (37.5-50.1) % Plt Count 30 L* 26 L* (140-400) K/mcL Neutrophils # 4.4 Test Not Performed (1.6-8.9) K/mcL BMP 08/07/16 04:00 Sodium 138 Potassium 3.9 Chloride 106 Carbon Dioxide 23 BUN 20 Creatinine 1.25 Glucose 111 H Calcium 8.8 Consult Discharge Plan - Plan Referrals: Julio César Lemus DO [Primary Care Provider] -
[2016-08-07] MEDS: Temazepam 15 MG CAPSULE PO SCH (21:01)
[2016-08-08] MEDS: *HR* HYDROmorphone (PF) 1 MG/ML SYRINGE IVP PRN ×4 (01:26→13:29)
[2016-08-08] MEDS: 0.9 % Sodium Chloride 1,000 ML IVC SCH (06:04)
[2016-08-08 06:51] LABS: Hemoglobin 7.8 g/dL (12.9-16.9); Nucleated Red Blood Cells 0.2 /100 WBC (0); Red Cell Distribution Width 14.2 % (11.5-14.5)
[2016-08-08 06:53] LABS: Hematocrit 23.2 % (37.5-50.1); Immature Platelets 5.3 % (1.1-6.1); Mean Corpuscular HGB Conc 33.6 g/dL (31.6-35.5); Mean Corpuscular Hemoglobin 28.3 pg (28.0-33.3); Mean Corpuscular Volume 84.1 fL (83.0-100.0); Mean Platelet Volume 9.3 fL (9.4-12.4); Red Blood Count 2.76 M/mcL (4.19-5.50)
[2016-08-08 06:55] LABS: Platelet Count 24 K/mcL (140-400)
[2016-08-08 07:02] LABS: BUN/Creatinine Ratio 13 (6-26); Blood Urea Nitrogen 12 mg/dL (8-26); Calcium 8.4 mg/dL (8.6-10.8); Carbon Dioxide 24 mEq/L (19-29); Chloride 105 mEq/L (98-109); Glucose 98 mg/dL (70-99); Osmolality,Calculated 282 (280-300); Potassium 3.8 mEq/L (3.5-4.5); Sodium 136 mEq/L (136-145); eGFR For African Americans > 60 (> 60); eGFR For Non-African Americans > 60 (> 60)
[2016-08-08 07:16] LABS: Lymphocytes # 1.9 K/mcL (0.6-4.6); Monocytes # 0.6 K/mcL (0.0-1.3); Neutrophils # 6.8 K/mcL (1.6-8.9)
[2016-08-08 07:17] LABS: Anisocytosis 1+ (Not Present); Microcytosis Present (Not Present); Platelet Estimate Decreased (Normal)
[2016-08-08] MEDS: *HR* OxyCODONE ER (12 HR) 10 MG TABLET PO SCH (08:52)
[2016-08-08] MEDS: valACYclovir 500 MG TABLET PO SCH (08:53)
--- NOTE | 2016-08-08 09:49 | Electrocardiograph Report ---
[place] [id number] Test Date: 2016-08-06 Pat Name: Nik Canela Department: 105 Room: 3A Gender: M [employer] In[employer]: : 1945 Requested By: Dakota Crockett Order Number: [id number] Reading MD: Holland Gould MD Measurements Intervals [place] Rate: 90 P: 28 AL: 135 QRS: -5 QRSD: 86 T: 3 QT: 342 QTc: 389 Interpretive Statements SINUS RHYTHM Electronically Signed On 08-08-2016 9:47:39 EST by Holland Gould MD
[2016-08-08 11:21] VITALS: BP 124/77
[2016-08-08] MEDS: *HR* OxyCODONE Immed Rel 5 MG TABLET PO PRN (11:34)
--- NOTE | 2016-08-08 12:38 | Discharge Summary ---
Date of Encounter: 08/08/16 Time of Encounter: 12:26 - Discharge Diagnosis (1) AML (acute myeloid leukemia) Priority: Primary Status: Acute Qualifiers: Leukemia Active/Remission status: in remission Qualified Code(s): C92.01 - Acute myeloblastic leukemia, in remission (2) Splenomegaly Priority: Primary Status: Acute (3) COPD (chronic obstructive pulmonary disease) Priority: Secondary Status: Acute Qualifiers: COPD type: unspecified COPD Qualified Code(s): J44.9 - Chronic obstructive pulmonary disease, unspecified (4) Pancytopenia Priority: Secondary Status: Acute - Discharge Medications Prescriptions: Oxycodone HCl [Oxycodone HCl ER] 15 mg PO Q12H #60 tab.er.12h Home Medications: Albuterol Sulfate [Ventolin Hfa] 1 puff IH Q4-6H PRN 01/20/16 [History] Ascorbate Calcium [Vitamin C] 500 mg PO DAILY 01/20/16 [History] Cholecalciferol (D-3) [Vitamin D] 1,000 unit PO DAILY 01/20/16 [History] Fluticasone Propionate Nasal [Flonase] 2 spray NS DAILY PRN 01/20/16 [History] Nadolol 20 mg PO DAILY 01/20/16 [History] Pantoprazole Sodium [Protonix] 40 mg PO DAILY 01/20/16 [History] Simvastatin [Zocor] 40 mg PO HS 01/20/16 [History] Temazepam [Restoril] 15 mg PO HS 01/20/16 [History] Ondansetron HCl [Zofran] 4 mg PO Q6H PRN 02/19/16 [History] Magic Mouthwash 5 - 10 ml PO TID PRN #480 ml 02/25/16 [Rx] Valacyclovir [Valtrex] 500 mg PO DAILY #30 tablet 02/25/16 [Rx] Oxycodone HCl 5 mg PO Q2H PRN #90 capsule 07/19/16 [Rx] Oxycodone HCl [Oxycodone HCl ER] 15 mg PO Q12H #60 tab.er.12h 08/08/16 [Rx] Allergies/Adverse Reactions: Allergies aspirin [ASA] Adverse Reaction (Verified 08/07/16 10:25) Heartburn Zolpidem [From Ambien] Adverse Reaction (Verified 08/07/16 10:25) See Comments PATIENT STATES IT DID NOT MAKE HIM SLEEPY- Procedures/tests Complete & Pending: Procedures Performed prior 72 hours Category Date Time Status ECG 12 lead ECG [ECG] Routine Y 08/06/16 13:46 Completed Date of admission: 08/06/16 20:10 Primary care physician: Jake Alexandra Consults: 08/06/16 20:31 Consult to Oncology [CONS] Routine Consulting Provider: [facility] Reason for Consult: 71M with AML, completed chemo in June, follows with Dr. Munroe, here with splenomegaly, spleen 20cm Call Completed: Yes Discharging clinician: Dakota Crockett Anticipated date of discharge: 08/08/16 - Patient Status Disposition: Home, Self-Care Condition: Fair Functional capacity at discharge: independent ambulation Overall status at discharge: patient is progressing back to baseline - Discharge Instructions Instructions: Anemia (GEN) Follow Up With: Julio César Lemus DO [Primary Care Provider] - 08/15/16 1:45 pm Additional Instructions: patient will follow with his oncologist at [facility] tomorrow. - Diet and Activity Activity: resume usual activities as tolerated Diet: advance to your usual diet Interval History: Mr. Canela is a 71 year old male with COPD, hypertension, chronic kidney disease, cirrhosis, and acute myeloid leukemia status post chemotherapy who presented to the emergency department today with complaints of left upper quadrant pain. Evaluation in the emergency department was significant for a CT of the abdomen and pelvis which showed splenomegaly with chronic occlusion of splenic vein, spleen measured 20 cm which is an increase from 11 cm on imaging done in 2013. Labs showed anemia with hemoglobin of 7.5. Patient has chronic anemia related to his AML and chemotherapy, and receives blood transfusions periodically. White blood cell count was normal at 10.5. Creatinine was elevated to 1.54, patient does report chronic kidney disease, however this is above his baseline. He is afebrile, vital signs are stable. he was admitted for further evaluation and oncology was consulted. Hospital course: case was discussed with oncology. Imaging as recently as October 2015 did not show any evidence of splenomegaly. Duration and etiology of his splenic vein thrombus is unclear at this time but his clinical presentation suggests fairly recent onset while collateralization suggests chronicity of his thrombus. Patient does carry a diagnosis of cirrhosis on his chart although his most recent imaging does not show any radiographic evidence of underlying liver cirrhosis. He has fairly well-preserved synthetic liver function despite his underlying diagnosis of AML and previous antineoplastic therapy. I am not sure if his splenomegaly or splenic vein thrombosis extending on the basis of underlying chronic liver disease. Pancreatic enzymes normal on initial presentation. Given chronicity, benefit of anticoagulation is unclear at this time. 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 Due to collateralization, anticoagulation may not alter the overall course of his splenic problem as per oncology. his pain subsided somewhat with pain meds however he has chronic dull aching pain. He is currently being evaluated at [facility] for relapse of his AML following previous remission ongoing treatment. HE has chronic pancytpenia, his hb did drop to 6.8 for which he received 1 unit prbc. he has an appt. at [facility] with his oncologist at [facility], he is being dc today to keep the appt tomorrrow as there is not much we can offer here. Time spent discussing smoking cessation with patient: more than 10 minutes - Time Spent with Patient Total time spent providing and/or coordinating discharge services: Greater than 30 minutes - Constitutional Vitals: Temp Pulse Resp BP Pulse Ox 98.6 F 87 16 124/77 93 L 08/08/16 11:20 08/08/16 11:20 08/08/16 11:20 08/08/16 11:20 08/08/16 11:20 General appearance: Present: cooperative, pleasant, answers questions appropriately Exam: - Head Head exam: Present: atraumatic, normocephalic - Eye Eye exam: Present: PERRL, conjuntiva pink, sclera anicteric Pupils: Present: PERRL - Neck Neck exam general surgery: Present: supple, trachea midline. Absent: lymphadenopathy - Respiratory Respiratory exam: Present: CTAB. Absent: accessory muscle use, rales, rhonchi, wheezes - Cardiovascular Cardiovascular exam: Present: RRR, +S1, +S2. Absent: diastolic murmur, gallop, rubs, systolic murmur - GI/Abdominal GI/Abdominal exam: Present: normal bowel sounds, soft, tenderness (LUQ), no peritoneal signs. Absent: distended - Extremities Exam Extremities exam: Present: warm, radial pulses palpable and symetrical. Absent : calf tenderness, cyanotic, pedal edema - Neurological Exam Neurological exam: Present: CN II-XII intact, oriented X3, no focal deficits. Absent: facial droop, speech deficit - Skin Skin exam: Present: dry, intact
== END 2016-08-08 13:51 | disposition home or self-care (01) | DRG 835 ==
LOC: 3ANU 13:35 → EMEROO 13:35 → 3ANU 18:29
PROVIDERS: ADMIT Nurse Practitioner Family; ATTEND Internal Medicine Endocrinology, Diabetes & Metabolism